=== PATIENT | female | born 1965 ===

== ENCOUNTER 2017-11-02 07:48 | Emergency (ER) | payer MEDICAID ==
[2017-11-02 07:48] VITALS: BMI 24.0
[2017-11-02] MEDS ORDERED: Lactated Ringer's 1,000 ML IV STA (08:07)
--- NOTE | 2017-11-02 08:07 | C.PDOC ---
History Of Present Illness 52-YEAR-OLD FEMALE, PRESENTS TO THE EMERGENCY DEPARTMENT WITH COMPLAINTS OF NVD SINCE LAST NIGHT. NO FEVER. +MULTIPLE WATERY BM. +ABD CRAMPING. PSH NEG EXAM MOD DIST NONTOXIC HEENT ANICTERIC MMM ABD NEG SKIN GOOD TURGOR REMAINDER NEG Time Seen by Provider: 11/02/17 07:58 Chief Complaint (Nursing): Abdominal Pain History Per: Patient History/Exam Limitations: no limitations Onset/Duration Of Symptoms: Days Current Symptoms Are (Timing): Still Present Severity: Moderate Past Medical History Reviewed: Historical Data, Nursing Documentation, Vital Signs Vital Signs: Last Vital Signs Temp 98.1 F 11/02/17 09:59 Pulse 77 11/02/17 09:59 Resp 20 11/02/17 09:59 BP 104/64 11/02/17 09:59 Pulse Ox 100 11/02/17 09:59 Family History: States: No Known Family Hx - Social History Hx Tobacco Use: No Hx Alcohol Use: No Hx Substance Use: No - Immunization History Hx Tetanus Toxoid Vaccination: No Hx Influenza Vaccination: Yes Hx Pneumococcal Vaccination: No Review Of Systems Except As Marked, All Systems Reviewed And Found Negative. Constitutional: Negative for: Fever, Chills Respiratory: Negative for: Shortness of Breath Gastrointestinal: Positive for: Nausea, Vomiting, Diarrhea Musculoskeletal: Negative for: Back Pain Neurological: Negative for: Weakness, Numbness, Headache, Dizziness Physical Exam - Physical Exam Appears: Non-toxic, No Acute Distress (moderate) Skin: Other ( GOOD TURGOR) Head: Atraumatic Eye(s): bilateral: Other (ANICTERIC) Nose: Normal Oral Mucosa: Moist Lips: Normal Appearing Neck: Normal ROM Cardiovascular: Rhythm Regular, No Murmur Respiratory: Normal Breath Sounds, No Accessory Muscle Use Gastrointestinal/Abdominal: Soft, No Tenderness Extremity: Normal ROM Neurological/Psych: Oriented x3, Normal Speech ED Course And Treatment - Laboratory Results Result Diagrams: 11/02/17 08:32 11/02/17 08:32 O2 Sat by Pulse Oximetry: 97 (on RA) Pulse Ox Interpretation: Normal Progress - Re-Evaluation Re-evaluation Note: 11/02/17 09:40 PS FEELS BETTER. NO RECUR V/D SINCE INITIAL EVAL. ABD SOFT NT ND NO R/G. IVF IN PROGRESS 11/02/17 10:28 TOLERATING PO WO DIFF. FEELS BETTER WISHES DC HOME VSS - Data Reviewed Data Reviewed: Lab Disposition Counseled Patient/Family Regarding: Diagnosis, Need For Followup, Rx Given - Disposition Referrals: [facility] [Outside] [facility] [Outside] Disposition: HOME/ ROUTINE Disposition Time: 10:29 Condition: IMPROVED Prescriptions: Ondansetron ODT [Zofran ODT] 4 mg PO TID PRN #12 odt PRN Reason: Nausea/Vomiting Instructions: Gastroenteritis (ED) Forms: [employer] (Pashto) - Clinical Impression Clinical Impression: Vomiting, Diarrhea, Abdominal pain - Scribe Statement The provider has reviewed the documentation as recorded by the Scribe (Cheryl Edmondson) All medical record entries made by the Scribe were at my direction and personally dictated by me. I have reviewed the chart and agree that the record accurately reflects my personal performance of the history, physical exam, medical decision making, and the department course for this patient. I have also personally directed, reviewed, and agree with the discharge instructions and disposition.
[2017-11-02] MEDS ORDERED: Atropine-Diphenoxylate 0.025-2.5 mg Tab PO STA (08:09)
[2017-11-02 08:36] LABS: BASO % 0.1 % (0.0-2.0); EOS % 0.3 % (0.0-4.0); HEMATOCRIT 36.4 % (34.0-47.0); LYMPH # 0.6 K/uL (1.0-4.3); LYMPH % 4.1 % (20.0-40.0); MEAN CELL VOLUME 76.2 fL (81.0-99.0); MEAN CORPUSCULAR HEMOGLOBIN 25.6 pg (27.0-31.0); MEAN CORPUSCULAR HGB CONC 33.7 g/dL (33.0-37.0); MEAN PLATELET VOLUME 8.4 fL (7.2-11.7); MONO # 0.5 K/uL (0.0-0.8); MONO % 2.9 % (0.0-10.0); PLATELET COUNT 299 K/uL (130-400); RED CELL DISTRIBUTION WIDTH 15.1 % (11.5-14.5); WHITE BLOOD COUNT 15.5 K/uL (4.8-10.8)
[2017-11-02 08:54] LABS: ALKALINE PHOSPHATASE 68 U/L (38-126); ALT/SGPT 22 U/L (9-52); AST/SGOT 29 U/L (14-36); BILIRUBIN,TOTAL 0.9 mg/dL (0.2-1.3); BLOOD UREA NITROGEN 21 mg/dL (7-17); CALCIUM 8.1 mg/dl (8.6-10.4); CARBON DIOXIDE 23 mmol/L (22-30); CHLORIDE 100 mmol/L (98-107); GFR AFRICAN-AMERICAN > 60; GLUCOSE,RANDOM 138 mg/dL (65-105); POTASSIUM 3.7 mmol/L (3.6-5.2); SODIUM 132 mmol/L (132-148)
[2017-11-02 09:39] LABS: NEUTROPHIL 85 % (50-75); TOTAL CELLS COUNTED 100
[2017-11-02 10:00] VITALS: BP 104/64; PULSE 77; RESP 20; TEMP 98.1
[2017-11-02 10:30] VITALS: O2SAT 97
== END 2017-11-02 10:51 | disposition home or self-care (01) ==
LOC: C.ER 07:48
DX: R11.10 Vomiting, unspecified (principal); R19.7 Diarrhea, unspecified; R10.9 Unspecified abdominal pain
CPT/HCPCS: 80053; 83690; 85025; 96361; 96372; 96374; 96375; 99284; J0500; J2405; J7120